=== PATIENT | female | born 1965 | race Asian ===

== ENCOUNTER 2016-10-23 08:04 | Day surgery (SDC) | payer OTHER ==
[~2016-10-23] VITALS: Ht 152.4 cm; Wt 68.0 kg
[2016-10-23] MEDS ORDERED: PAXIL PO (09:42)
[2016-10-23] MEDS ORDERED: TOPCARE ASPIRIN81 M1 PO (09:42)
[2016-10-23] MEDS ORDERED: LOTENSIN40 MG PO (09:42)
[2016-10-23] MEDS ORDERED: PAXIL CR25 MG PO (09:42)
[2016-10-23] MEDS ORDERED: METFORMIN HCL500 MG PO (09:42)
[2016-10-23] MEDS ORDERED: VIBRAMYCIN100 MG PO (09:42)
[2016-10-23] MEDS ORDERED: HYDRALAZINE HY100 M1 PO (09:42)
[2016-10-23] MEDS ORDERED: STATIN (09:42)
[2016-10-23] MEDS ORDERED: AMLODIPINE BES2.5 MG PO (09:42)
[2016-10-23] MEDS ORDERED: fentaNYL 0.05 MG/ML VIAL ONE (10:28)
[2016-10-23] MEDS ORDERED: BUPIVACAINE-MPF/EPI 0.25% 30 ML VIAL INJ ONE (10:34)
[2016-10-23] MEDS ORDERED: LIDOCAINE/EPI MPF 1%1:200000 30 ML VIAL INJ ONE (10:34)
[2016-10-23] MEDS ORDERED: BLOOD GLUCOSE MONITORING 1 DEV DEV FS SCH (10:45)
[2016-10-23] MEDS ORDERED: ONDANSETRON 4 MG/2 ML VIAL IVP PRN (10:45)
[2016-10-23] MEDS ORDERED: HYDROmorphone 1 MG/ML AMP IVP PRN ×2 (10:45→11:10)
[2016-10-23] MEDS ORDERED: MORPHINE SULFATE 2 MG/ML SYR IVP PRN (11:10)
[2016-10-23] MEDS ORDERED: ONDANSETRON 4 MG/2 ML VIAL IV PRN (11:10)
[2016-10-23] MEDS ORDERED: HYDROcodone/APAP 5/325 MG 1 TAB TAB PO PRN (11:10)
[2016-10-23] MEDS ORDERED: MORPHINE SULFATE 4 MG/ML SYR IV PRN (11:10)
== END 2016-10-23 12:50 | disposition home or self-care (01) ==
LOC: MDS 08:04 → MMU 08:04 → MDS 12:50
PROVIDERS: ATTEND Surgery
DX: D24.2 Benign neoplasm of left breast (principal); I12.9 Hypertensive chronic kidney disease with stage 1 through stage 4 chronic kidney disease, or unspecified chronic kidney disease; E11.22 Type 2 diabetes mellitus with diabetic chronic kidney disease; N18.3 Chronic kidney disease, stage 3 (moderate); E66.3 Overweight; I25.119 Atherosclerotic heart disease of native coronary artery with unspecified angina pectoris; E78.5 Hyperlipidemia, unspecified; I63.9 Cerebral infarction, unspecified; K21.9 Gastro-esophageal reflux disease without esophagitis; J44.9 Chronic obstructive pulmonary disease, unspecified; F32.9 Major depressive disorder, single episode, unspecified; L30.9 Dermatitis, unspecified; F17.210 Nicotine dependence, cigarettes, uncomplicated; Z86.73 Personal history of transient ischemic attack (TIA), and cerebral infarction without residual deficits
CPT/HCPCS: 19120; 71010; 82948; 93005; J0690; J3010; J3490; J7030; J7060; J7120